=== PATIENT | male | born 1955 | race Caucasian/White ===

== ENCOUNTER 2022-09-12 07:28 | Outpatient (CLI) | payer MEDICARE, OTHER, SELFPAY ==
[2022-09-12 11:15] LABS: Albumin* 4.3 g/dL (3.3-5.0); Chloride* 103 mmol/L (96-114); Sodium* 139 mmol/L (135-149)
[2022-09-12 11:16] LABS: Potassium* 4.2 mmol/L (3.6-5.1)
[2022-09-12 11:17] LABS: Cholesterol* 169 mg/dL (90-199)
[2022-09-12 11:18] LABS: Alanine Aminotransferase* 25 U/L (4-50); Alkaline Phosphatase* 65 U/L (40-150); Aspartate Amino Transferase* 25 U/L (12-35); Bilirubin Total* 0.7 mg/dL (0.1-1.5); Blood Urea Nitrogen* 17 mg/dL (7-30); Calcium* 9.4 mg/dL (8.4-10.6); Carbon Dioxide* 29 mmol/L (20-32); Creatinine* 0.7 mg/dL (0.5-1.5); Estimated Glomerular Filt Rate 103 ml/min; Glucose* 107 mg/dL (60-115); Total Protein* 7.1 g/dL (6.0-8.3); Triglycerides* 262 mg/dL (40-149)
[2022-09-12 11:19] LABS: Creatinine Urine 187.9 mg/dL; HDL Cholesterol* 47 mg/dL (>=40); LDL Cholesterol Calculated 70 mg/dL (<100)
[2022-09-12 11:23] LABS: Microalbumin Creatinine Ratio 0 mg/g (0-30); Microalbumin Urine 1 mg/dL
[2022-09-12 11:47] LABS: PSA Screen* 2.21 ng/mL (0.10-4.00)
== END 2022-09-12 07:29 | disposition home or self-care (01) ==
LOC: NFLDREF 07:29
PROVIDERS: PCP Family Medicine; Visit Provider Family Medicine
DX: Z00.00 Encounter for general adult medical examination without abnormal findings (principal); E11.9 Type 2 diabetes mellitus without complications; E78.5 Hyperlipidemia, unspecified; Z12.5 Encounter for screening for malignant neoplasm of prostate
CPT/HCPCS: 80053; 80061; 82043; 82570; 84153

== ENCOUNTER 2023-12-14 08:28 | Outpatient (CLI) | payer MEDICARE, OTHER, SELFPAY ==
--- OUTSIDE RECORDS SUMMARY | 2024-01-01 06:40 | XMS_ITS | Continuity of Care Document ---
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 Medication Details Route Status Patient Instructions Prescription Expires Prescription Number Last Dispense Date Ordering Provider Order Date Order Qty Source ASPIRIN 81MG TAB,EC TAKE ONE TABLET BY MOUTH EVERY DAY ORALLY ACTIVE CATRINA,KAYLEY REL 2017 [facility] FENOFIBRATE TAB TAKE 160MG BY MOUTH EVERY DAY ORALLY ACTIVE QUYNH,KAYLEY REL 2017 [facility] METFORMIN HCL 1000MG TAB TAKE ONE TABLET BY MOUTH EVERY DAY ORALLY ACTIVE QUYNH,KAYLEY REL 2017 [facility] METFORMIN HCL ER (metformin HCl), 500 MG, TAB ER 24H, ORAL, AVKARE, 1000 ea. BOTTLE Active [id number] 2023 90 Pharmac y Data Transac tion Service Facilit y SIMVASTATIN (simvastati n), 40 MG, TABLET, ORAL, PURACAP LABORAT, 1000 ea. BOTTLE Active [id number] 4 2023 90 Pharmac y Data Transac tion Service Facilit y SIMVASTATIN 80MG TAB TAKE ONE-HALF TABLET BY MOUTH AT BEDTIME ORALLY ACTIVE CATRINA,KAYLEY REL 2017 [facility] Immunizations Combined list of available immunizations from the Department of [facility] and [facility] facilities. 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 Comments Source ZOSTER RECOMBINANT 2 2021 187 complet ed [facility] COVID-19 (Y'all), MRNA, LNP-S, PF, 30 MCG/0.3 ML DOSE, KAILYN-SUCROSE (AGES 12+ YEARS) 4 2021 217 complet ed PFR; [id number]; 2 [facility] ZOSTER RECOMBINANT 1 2021 187 complet ed [facility] INFLUENZA, UNSPECIFIED FORMULATION 2020 88 complet ed [facility] COVID-19 (PFIZER), MRNA, LNP-S, PF, 30 MCG/0.3 ML DOSE 2 2020 208 complet ed PFR; [id number]; 1 [facility] COVID-19 (PFIZER), MRNA, LNP-S, PF, 30 MCG/0.3 ML DOSE 1 2020 208 complet ed PFR; [id number]; 1 [facility] INFLUENZA, SEASONAL, INJECTABLE 2016 141 complet ed [facility] TDAP 2015 115 complet ed [facility] Results Combined list of recent chemistry, hematology and other laboratory results from [facility] and [facility], ranging from 15 months to all on record, depending upon the facility. Order Name Results Value Reference Range Date Interpretation Specimen Comments Source LIPID PANEL,NON- FASTING CHOLESTEROL [MASS/VOLUM E] IN SERUM OR PLASMA 128 <199 - 199 02/06 Specimen Type: PLASMA No comment entered. Ordering Provider: MARIUSZ CHU Report Released Date/Time: Jan 14, 2022 10:47 AM Reporting Lab: [facility] [phone] Performing Lab: [facility] [address] [facility] LIPID PANEL,NON- FASTING CHOLESTEROL IN HDL [MASS/VOLUM E] IN SERUM OR PLASMA 35 40 02/06 L Specimen Type: PLASMA No comment entered. Ordering Provider: MARIUSZ CHU Report Released Date/Time: Jan 14, 2022 10:47 AM Reporting Lab: [facility] [phone] Performing Lab: [facility] [phone] [facility] CB LIPID PANEL,NON- FASTING CHOLESTEROL IN LDL [MASS/VOLUM E] IN SERUM OR PLASMA BY CALCULATION 64 <99 - 99 02/06 Specimen Type: PLASMA No comment entered. Ordering Provider: MARIUSZ CHU Report Released Date/Time: Jan 14, 2022 10:47 AM Reporting Lab: [facility] [phone] Performing Lab: [facility] [address] [facility] LIPID PANEL,NON- FASTING CHOLESTEROL IN VLDL [MASS/VOLUM E] IN SERUM OR PLASMA BY CALCULATION 29 <29 - 29 02/06 Specimen Type: PLASMA No comment entered. Ordering Provider: MARIUSZ CHU Report Released Date/Time: Jan 14, 2022 10:47 AM Reporting Lab: [facility] [phone] Performing Lab: [facility] [address] [facility] LIPID PANEL,NON- FASTING CHOLESTEROL NON HDL [MASS/VOLUM E] IN SERUM OR PLASMA 93 <129 - 129 02/06 Specimen Type: PLASMA No comment entered. Ordering Provider: MARIUSZ CHU Report Released Date/Time: Jan 14, 2022 10:47 AM Reporting Lab: [facility] [phone] Performing Lab: [facility] [phone] [facility] LIPID PANEL,NON- FASTING TRIGLYCERID E [MASS/VOLUM E] IN SERUM OR PLASMA 145 <149 - 149 02/06 Specimen Type: PLASMA No comment entered. Ordering Provider: MARIUSZ CHU Report Released Date/Time: Jan 14, 2022 10:47 AM Reporting Lab: [facility] [address] Performing Lab: [facility] [phone] [facility] BASIC METABOLIC PANEL+MG CREATININE [MASS/VOLUM E] IN SERUM OR PLASMA 0.8 0.7 - 1.2 02/06 Specimen Type: PLASMA No comment entered. Ordering Provider: MARIUSZ CHU Report Released Date/Time: Jan 14, 2022 10:47 AM Reporting Lab: [facility] [phone] Performing Lab: [facility] [phone] [facility] BASIC METABOLIC PANEL+MG UREA NITROGEN [MASS/VOLUM E] IN SERUM OR PLASMA 16 8 - 26 02/06 Specimen Type: PLASMA No comment entered. Ordering Provider: MARIUSZ CHU Report Released Date/Time: Jan 14, 2022 10:47 AM Reporting Lab: [facility] [phone] Performing Lab: [facility] [address] [facility] BASIC METABOLIC PANEL+MG GLUCOSE [MASS/VOLUM E] IN SERUM OR PLASMA 126 74 - 100 02/06 H Specimen Type: PLASMA No comment entered. Ordering Provider: MARIUSZ CHU Report Released Date/Time: Jan 14, 2022 10:47 AM Reporting Lab: [facility] [phone] Performing Lab: [facility] [phone] [facility] BASIC METABOLIC PANEL+MG SODIUM [MOLES/VOLU ME] IN SERUM OR PLASMA 139 136 - 145 02/06 Specimen Type: PLASMA No comment entered. Ordering Provider: MARIUSZ CHU Report Released Date/Time: Jan 14, 2022 10:47 AM Reporting Lab: [facility] [phone] Performing Lab: [facility] [phone] [facility] BASIC METABOLIC PANEL+MG POTASSIUM [MOLES/VOLU ME] IN SERUM OR PLASMA 3.7 3.5 - 5.1 02/06 Specimen Type: PLASMA No comment entered. Ordering Provider: MARIUSZ CHU Report Released Date/Time: Jan 14, 2022 10:47 AM Reporting Lab: [facility] [phone] Performing Lab: [facility] [phone] [facility] BASIC METABOLIC PANEL+MG CHLORIDE [MOLES/VOLU ME] IN SERUM OR PLASMA 104 98 - 107 02/06 Specimen Type: PLASMA No comment entered. Ordering Provider: MARIUSZ CHU Report Released Date/Time: Jan 14, 2022 10:47 AM Reporting Lab: [facility] [phone] Performing Lab: [facility] [phone] [facility] BASIC METABOLIC PANEL+MG CARBON DIOXIDE, TOTAL [MOLES/VOLU ME] IN SERUM OR PLASMA 27 22 - 29 02/06 Specimen Type: PLASMA No comment entered. Ordering Provider: MARIUSZ CHU Report Released Date/Time: Jan 14, 2022 10:47 AM Reporting Lab: [facility] [phone] Performing Lab: [facility] [address] [facility] BASIC METABOLIC PANEL+MG CALCIUM [MASS/VOLUM E] IN SERUM OR PLASMA 9.5 8.4 - 10.2 02/06 Specimen Type: PLASMA No comment entered. Ordering Provider: MARIUSZ CHU Report Released Date/Time: Jan 14, 2022 10:47 AM Reporting Lab: [facility] [phone] Performing Lab: [facility] [phone] [facility] BASIC METABOLIC PANEL+MG MAGNESIUM [MASS/VOLUM E] IN SERUM OR PLASMA 2.1 1.6 - 2.6 02/06 Specimen Type: PLASMA No comment entered. Ordering Provider: MARIUSZ CHU Report Released Date/Time: Jan 14, 2022 10:47 AM Reporting Lab: [facility] [phone] Performing Lab: [facility] [address] [facility] BASIC METABOLIC PANEL+MG ANION GAP IN SERUM OR PLASMA 8 5 - 15 02/06 Specimen Type: PLASMA No comment entered. Ordering Provider: MARIUSZ CHU Report Released Date/Time: Jan 14, 2022 10:47 AM Reporting Lab: [facility] [phone] Performing Lab: [facility] [phone] [facility] BASIC METABOLIC PANEL+MG GLOMERULAR FILTRATION RATE/1.73 SQ M.PREDICTED [VOLUME RATE/AREA] IN SERUM OR PLASMA BY CREATININE- BASED FORMULA (MDRD) >90 60 02/06 Specimen Type: PLASMA No comment entered. Ordering Provider: MARIUSZ CHU Report Released Date/Time: Jan 14, 2022 10:47 AM Reporting Lab: [facility] [phone] Performing Lab: [facility] [address] [facility] HEMOGLOBIN A1C HEMOGLOBIN A1C/HEMOGLO BIN.TOTAL IN BLOOD 6.2 4.0 - 6.0 02/06 H Specimen Type: BLOOD No comment entered. Ordering Provider: MARIUSZ CHU Report Released Date/Time: Jan 14, 2022 10:47 AM Reporting Lab: [facility] [phone] Performing Lab: [facility] [phone] [facility] Encounters Combined list of: 1) Encounters from [facility] facilities going back up to thelast 18 months. 2) Encounters from the Department of [facility] facilities going back up to 280 months. Location Location Details Encounter Type Encounter Number Reason For Visit Attending Provider ADM Date DC Date Status Disposition Source [facility] Outpatient Encounter [id number] 06/06 [facility] Outpatient Encounter [id number] 08/13 [facility] Social History Combined list of available smoking, tobacco, and other social history from [facility] facilities. Social History Type Response Date Comment Sourc e Tobacco smoking status ALIS ID-TOBACCO FORMER USER 02/06/2022 [facility] of [facility] History of tobacco use CURRENT TOBACCO USER 09/04/2017 [facility] This section is an empty social history section. [employer]
== END 2023-12-14 08:29 | disposition home or self-care (01) ==
LOC: NFLDREF 01-01 06:39
PROVIDERS: PCP Family Medicine; Referring Provider Family Medicine; Visit Provider Family Medicine
DX: E11.9 Type 2 diabetes mellitus without complications (principal); E78.5 Hyperlipidemia, unspecified; R03.0 Elevated blood-pressure reading, without diagnosis of hypertension; I65.23 Occlusion and stenosis of bilateral carotid arteries; Z13.9 Encounter for screening, unspecified
CPT/HCPCS: 80053; 80061; 82043; 82570